=== PATIENT | male | born 1935 | race Caucasian/White ===

== ENCOUNTER → 2017-02-23 | Outpatient (CLI) | payer MEDICARE, OTHER ==
--- NOTE | 2017-02-23 16:31 | RAD ---
PA and lateral chest radiographs 02/23/2017 Clinical history: Productive cough for one week. PA and lateral digital radiographs of the chest were obtained. No previous studies are available for comparison. The cardiac silhouette is mildly enlarged. Atherosclerotic calcification of the thoracic aorta is seen. The thoracic aorta is mildly tortuous. Bilateral perihilar infiltrates are seen which are felt to most likely reflect pulmonary edema from CHF. There are small bilateral pleural effusions. No pneumothorax is noted. Degenerative changes are seen involving the thoracic spine. Impression: Bilateral perihilar infiltrates are seen, right greater than left which are felt to most likely reflect pulmonary edema from CHF.
== END | disposition home or self-care (01) ==
LOC: DXRADRC 16:14
PROVIDERS: ATTEND General Practice
DX: J90 Pleural effusion, not elsewhere classified (principal); I70.0 Atherosclerosis of aorta; R91.8 Other nonspecific abnormal finding of lung field
CPT/HCPCS: 71020